=== PATIENT | male | born 1965 | race Caucasian/White ===

== ENCOUNTER 2020-10-12 12:29 | Emergency (ER) | payer OTHER, SELFPAY ==
[2020-10-12 12:59] VITALS: BP 149/72; PULSE 73; RESP 18; TEMP 36.7; O2SAT 98; BMI 30.1
--- NOTE | 2020-10-12 13:11 | ED_ITS ---
HPI - Skin/Abscess/Foreign Bdy <HARIS Miller - Last Filed: 10/12/20 14:16> General Chief complaint: Skin/Abscess/Foreign Body Stated complaint: Poss spider bite on RT leg Time Seen by Provider: 10/12/20 12:51 Source: patient Mode of arrival: Family Vehicle Limitations: no limitations History of Present Illness HPI narrative: This is a 54 year male, smoker, who has noncontributory medical problems presents to ED with chief complain of spider bite on right anterior lower leg and ingrown toenail on right great toe for last 10 days to 2 weeks. He denies fever, chills, nausea or vomiting. Patient reports he started as a very small pruritus lesion on right lower leg anterior braden after cleaning the yard to move house where infested with many spiders. Patient had scratched the area and has been using hydrogen peroxide, Neosporin, athlete's foot cream to treat this but has not been getting better and actually the size has been increasing. Patient denies significant pain on affected site. Now with skin appears to be more dry, red, and flaky. Patient also reports having pruritus lesions on forehead and bilateral upper arms as well. Patient denies exposure to new products such as soaps, detergents, or clothes. However, recently moved to new house and now his using city water instead of well water. He also states has been having ingrown toenail problem for last 2.5 years and has been treating with Epsom salt soak and antibiotic ointment use. Patient has a habit of cutting his nails short, curving the nails. Patient reports discomfort, redness, slightly purulent discharge from the site despite the home treatment. Patient reports has not been seen doctors for last 15-20 years. Related Data Previous Rx's Medication Instructions Recorded hydrocortisone valerate 1 applic TOPICAL TID PRN #15 g 10/12/20 mupirocin 1 applic TOPICAL TID #15 g 10/12/20 Allergies Allergy/AdvReac Type Severity Reaction Status Date / Time No Known Drug Allergies Allergy Verified 10/12/20 12:55 Review of Systems <HARIS Miller - Last Filed: 10/12/20 14:16> Review of Systems Narrative: General: Denies fever, chills, fatigue, malaise, sweats. Respiratory: Denies dyspnea, cough, wheezing, hemoptysis, sputum. Cardiovascular: Denies chest pain, palpitations, orthopnea, edema. Gastrointestinal: Denies nausea, vomiting, abdominal pain, diarrhea, constipation, melena. : Denies dysuria, frequency, incontinence, hematuria, urinary retention. Musculoskeletal: Denies weakness, joint pain or bony pain. Skin: See HPI Patient History <HARIS Miller - Last Filed: 10/12/20 14:16> Surgical History (Updated 10/12/20 @ 13:24 by HARIS Miller) No pertinent past surgical history Social History Smoking Status: Current every day smoker Smoking Status: Current every day smoker alcohol intake frequency: 0-2 drinks per day Substance Use Type: marijuana Exam <HARIS Miller - Last Filed: 10/12/20 14:16> Narrative Exam Narrative: General appearance: well developed, well nourished, in no acute distress. Head: normocephalic, atraumatic, no scalp lesions, non-tender. ENT: Hearing grossly intact. Nose without bleeding, purulent discharge, septal hematoma or deviation. Turbinate without erythema or swelling. Mucous membrane moist, no mucosal lesion. Throat without erythema, tonsillar hypertrophy or exudate. Uvula in midline, airway patent. Neck/Thyroid: neck supple, full range of motion, no visible masses or meningeal signs. No JVD, non-tender without lymphadenopathy. Skin: 3 x 6 cm erythematous plaque which appears to be with crossed and fissures on right anterior braden. Right great toe with erythema, edema, slight purulent discharge in medial and lateral nail edge. Mildly warmth to touch. Scattered papular lesioins on bilateral upper arms and forehead. Warm and dry and appropriate color for ethnicity. Heart: no clubbing, no cyanosis, no edema. S1 and S2 normal. RRR w/o murmurs, clicks, or bruits. Lungs: Breathing even and unlabored. No stridor. No accessory muscles used. Able to speak in full sentences. Chest: normal shape and expansion. Abdomen: non-obese, non-distended. Neurologic: alert and oriented. Cognitive exam, SUPPLY PERSON and PNS grossly intact on informal exam. Psych: good eye contact, normal affect. Initial Vital Signs Initial Vital Signs: Vital Signs Temperature 98.1 F 10/12/20 12:59 Pulse Rate 73 10/12/20 12:59 Respiratory Rate 18 10/12/20 12:59 Blood Pressure 149/72 H 10/12/20 12:59 Pulse Oximetry 98 10/12/20 12:59 <Keiry Almeida MD - Last Filed: 10/19/20 07:23> Initial Vital Signs Initial Vital Signs: Vital Signs Temperature 98.1 F 10/12/20 12:59 Pulse Rate 73 10/12/20 12:59 Respiratory Rate 18 10/12/20 12:59 Blood Pressure 149/72 H 10/12/20 12:59 Pulse Oximetry 98 10/12/20 12:59 Scores <HARIS Miller - Last Filed: 10/12/20 14:16> GCS Genny coma scale eye opening: Spontaneous [place] coma scale verbal response: Orientated Genny coma scale motor response: Obey commands Genny coma scale total score: 15 qSOFA Altered Mental Status (GCS <15): No Respiratory rate greater than/equal to 22: No Systolic blood pressure less than or equal to 100: No qSOFA Total: 0 0-1 Not High Risk 1-3 High risk Course <HARIS Miller - Last Filed: 10/12/20 14:16> Vital Signs Vital signs: Vital Signs - 8 hr 10/12/20 12:59 10/12/20 13:48 Temperature 98.1 F Pulse Rate 73 64 Respiratory Rate 18 16 Blood Pressure 149/72 H 123/78 Pulse Oximetry 98 100 <Keiry Almeida MD - Last Filed: 10/19/20 07:23> Vital Signs Vital signs: Vital Signs - 8 hr 10/12/20 12:59 10/12/20 13:48 Temperature 98.1 F Pulse Rate 73 64 Respiratory Rate 18 16 Blood Pressure 149/72 H 123/78 Pulse Oximetry 98 100 MDM - Skin/Abscess/Foreign Bdy <HARIS Miller - Last Filed: 10/12/20 14:16> Differential Diagnosis Differential diagnosis: Likely insect bites, contact dermatitis and other (A topic dermatitis, ingrown toenail, superimposed cellulitis) Medical Records Attestation: I reviewed the patient's medical records. MDM Narrative Medical decision making narrative: This is a 54 year old male who presents to ED with concerns for skin lesions possibly from a spider bit on right anterior braden, right great toe ingrown toe nail, pruritic skin lesions on forehead and bilateral upper arms. Physical exam appreciated sporatic erythematous papules on arms and forehead. Right lower leg lesioin appears to be erythematous crust with fissures appears to be superimposed infection and right great toe with acute paronychia chronic condition. Will treat patient with a short course of antibiotic medication Keflex and advised patient to keep his skin moist to prevent pruritus and scratching. Patient advised to use hydrocortisone cream as needed but as little as possible on pruritus. Also, patient discharged to home with mupirocin to apply on right leg and great toe as needed. We discussed several regimen to help with ingrown toenail and advised to set up a primary care physician. Provided Hospital health Resource phone number provided. Return precautions were discussed with patient and he verbalized understanding and agreement with the treatment plan. Discharge Plan Departure Patient Disposition: Home Clinical Impression: Paronychia due to ingrown nail Atopic dermatitis Qualifiers: Atopic dermatitis type: unspecified Qualified Code(s): L20.9 - Atopic dermatitis, unspecified Instructions: DI for Cellulitis -- Adult, DI for Paronychia, DI for Atopic Dermatitis-Adult Activity Restrictions/Additional Instructions: You have been diagnosed with [paronychia on right great toe, atopic dermatitis appears to be getting an early infection. Please keep your skin moist by using with quality moisturizer few times a day and after shower. Please avoid hot water to shower or bath and to avoid scratching.]. What to do: *Take your medications as directed. Please start Keflex 3 times a day for next 5 days. You can use hydrocortisone cream on itching rashes as needed. Please use Mupirocin antibiotic ointment on anterior braden and great toe to help with infection. His medication have been transmitted to [facility]. *Follow up with your primary care provider in 2-3 days, call for an appointment. Let them know you were seen in the ED and that we asked you to be seen in [facility]. *Return to ED if you have any new, worsening, or concerning symptoms, such as [worsening pain, increasing redness/warmth/swelling/ drainage, fever, chest pain, breathing difficulty, unable to tolerate fluids or any acute concerns]. Prescriptions: New hydrocortisone valerate 0.2 % cream 1 applic topical TID PRN (Reason: rash) Qty: 15 RF: 0 mupirocin 2 % ointment 1 applic topical TID Qty: 15 RF: 0 Referrals: [facility] [Outside] <Keiry Almeida MD - Last Filed: 10/19/20 07:23> Cosign ED Attending Cosignature Attestation: I was immediately available in the department for consultation throughout this patient's visit. I agree with documentation as above. Keiry Almeida MD
[2020-10-12 13:48] VITALS: BP 123/78; PULSE 64; RESP 16; O2SAT 100
== END 2020-10-12 13:49 | disposition home or self-care (01) ==
PROVIDERS: Emergency Provider Nurse Practitioner Family
DX: L03.031 Cellulitis of right toe (principal); L60.0 Ingrowing nail; L20.9 Atopic dermatitis, unspecified
CPT/HCPCS: 99281